=== PATIENT | female | born 1940 | race Caucasian/White ===

== ENCOUNTER 2019-07-18 16:04 | Inpatient (IN) | payer MEDICARE ==
[~2019-07-18] VITALS: Ht 160 cm; Wt 58.1 kg
[2019-07-18 17:02] VITALS: BP 139/70
[2019-07-18] MEDS ORDERED: POLY17PO5 PO (17:54)
[2019-07-18] MEDS ORDERED: AMLO5TAB10 PO (17:54)
[2019-07-18] MEDS ORDERED: APIX5TAB3 PO (17:54)
[2019-07-18] MEDS ORDERED: FAMO-63 PO (17:54)
[2019-07-18] MEDS ORDERED: ESTR42.58 VG (17:54)
[2019-07-18] MEDS ORDERED: PROP40TA PO (17:54)
--- NOTE | 2019-07-18 18:00 | NUR ---
NURSING NOTE ADMIT PT WAS DIRECT ADMIT TO ROOM [address]ERI OFFICE. PT DX WITH RIGHT FOREARM LYMPHANGITIS. PHOTO OBTAINED. PT SETTLED IN ROOM. MEDICATIONS OBTAINED AND ENTERED IN CHART. DR NERI NOTIFIED OF ADMISSION. NO COMPLICATIONS. ILIR [place].
[2019-07-18] MEDS ORDERED: ACETAMINOPHEN 500 MG TABLET PO PRN (18:15)
[2019-07-18] MEDS ORDERED: ZOLPIDEM 5 MG TABLET. PO PRN (18:15)
[2019-07-18 18:59] LABS: BASO % 1 % (0-3); EOS # 0.1 x10^3/uL (0.0-0.7); EOS % 2 % (0-3); HEMATOCRIT 38.1 % (36.0-47.0); HEMOGLOBIN 12.9 g/dL (12.0-15.5); LYMPH # 1.2 x10^3/uL (1.0-4.8); LYMPH % 20 % (24-48); MEAN CORPUSCULAR HEMOGLOBIN 32 pg (25-35); MEAN CORPUSCULAR HGB CONC 34 g/dL (31-37); MEAN CORPUSCULAR VOLUME 95 fL (79-100); MONO # 0.4 x10^3/uL (0.0-1.1); MONO % 7 % (0-9); NEUT % 70 % (31-73); PLATELET COUNT 259 x10^3/uL (140-400); RED BLOOD COUNT 4.03 x10^6/uL (3.50-5.40); WHITE BLOOD COUNT 5.7 x10^3/uL (4.0-11.0)
[2019-07-18 19:13] LABS: ALBUMIN 3.5 g/dL (3.4-5.0); ALBUMIN/GLOBULIN RATIO 0.9 (1.0-1.7); CALCIUM 8.9 mg/dL (8.5-10.1); CREATININE 1.3 mg/dL (0.6-1.0); GFR 39.6; POTASSIUM 4.2 mmol/L (3.5-5.1); TOTAL BILIRUBIN 0.5 mg/dL (0.2-1.0); TOTAL PROTEIN 7.4 g/dL (6.4-8.2)
[2019-07-18 20:06] LABS: SEDIMENTATION RATE 58 (0-25)
[2019-07-18 20:34] VITALS: BP 121/57
[2019-07-18] MEDS: LACTOBACILLUS RHAMNOSUS GG 1 CAPSULE. PO SCH (21:15)
[2019-07-18] MEDS: PROPRANOLOL 20 MG TABLET. PO SCH (21:16)
[2019-07-18] MEDS: CLINDAMYCIN 600MG PREMIX 50 ML IV SCH (21:16)
[2019-07-18] MEDS: APIXABAN 5 MG TABLET. PO SCH (21:16)
[2019-07-18 23:52] VITALS: BP 115/63
[2019-07-19] MEDS: CLINDAMYCIN 600MG PREMIX 50 ML IV SCH ×3 (05:39→21:48)
[2019-07-19 05:50] VITALS: BP 131/74
[2019-07-19] MEDS: POLYETHYLENE GLYCOL 3350 17 GM PACKET. PO SCH (08:19)
[2019-07-19] MEDS: APIXABAN 5 MG TABLET. PO SCH ×2 (08:20→20:38)
[2019-07-19] MEDS: LACTOBACILLUS RHAMNOSUS GG 1 CAPSULE. PO SCH ×2 (08:20→20:38)
[2019-07-19] MEDS: FAMOTIDINE 20 MG TABLET PO SCH (08:20)
[2019-07-19] MEDS: amLODIPine BESYLATE 5 MG TABLET PO SCH (08:21)
[2019-07-19] MEDS: PROPRANOLOL 20 MG TABLET. PO SCH ×2 (08:21→20:38)
--- NOTE | 2019-07-19 08:42 | RAD ---
PROCEDURE: WRIST 2V RIGHT STUDY DATE: 07/18/2019 CLINICAL INDICATION / HISTORY: Cat bite to the wrist right. TECHNIQUE: PA and lateral views of the right wrist were obtained COMPARISON: None FINDINGS: A dressing over the dorsum of the right wrist is present. There is no fracture or retained radiopaque foreign body besides artifact from the dressing material overlying the dorsomedial right wrist. Alignment shows mild ulnar negative variance. Minimal degenerative changes of the first CMC joint. Otherwise negative right wrist. IMPRESSION: Dressed wound on the dorsal aspect of the right wrist with no acute abnormality otherwise noted. Electronically signed by: Angel Del Rio MD (07/19/2019 8:39 AM) [facility]
[2019-07-19 10:42] VITALS: BP 110/58
--- NOTE | 2019-07-19 12:05 | PN ---
DATE: SUBJECTIVE: A 79-year-old female came in with cellulitis, lymphangitis to her right arm as a result of a cat bite to the right wrist that was left untreated. Apparently, went to the ER and they had problems with the situation with just giving her 1 antibiotic, which does seem to work as the progression of the infection spread up the arm. The patient has been placed on protocols as noted for cat bites with lymphangitis and the patient is making fairly good progress with a combination of Rocephin and clindamycin. The patient otherwise says she is feeling a little bit better, although she is still having quite a bit of pain in that right arm. OBJECTIVE: VITAL SIGNS: Blood pressure is 130/74, respirations 18, pulse 70, afebrile. GENERAL: The patient is alert and oriented x 3. EXTREMITIES: The right hand is less swollen, less redness to the right forearm, although still present, it is decreased in its aperture. The patient is able move her fingers a little bit better. They were stiff for yesterday. NEUROLOGIC: The patient neurologically is alert and oriented x 3. LUNGS: Diminished, but clear. CARDIOVASCULAR: Stable. IMPRESSION: Cellulitis, lymphangitis to the right arm secondary to cat bite. PLAN: The patient will continue on IV antibiotic therapy. Sed rate was elevated at 58, creatinine elevated at 1.3, blood sugar 114. Otherwise, the patient is making good progress overall and continued to be monitored on IV antibiotic therapy and hopefully ready for discharge tomorrow possibly either on IV or p.o. meds depending on how well she makes progress today. BEATRIZ NERI MD DR: PAUL/uri JOB#: [id number] / [id number]
[2019-07-19 14:57] VITALS: BP 101/55
[2019-07-19 19:22] VITALS: BP 125/67
[2019-07-19 22:09] VITALS: BP 105/65
[2019-07-20] MEDS: CLINDAMYCIN 600MG PREMIX 50 ML IV SCH (05:31)
[2019-07-20 05:42] VITALS: BP 102/64
[2019-07-20] MEDS: APIXABAN 5 MG TABLET. PO SCH (08:24)
[2019-07-20] MEDS: POLYETHYLENE GLYCOL 3350 17 GM PACKET. PO SCH (08:24)
[2019-07-20] MEDS: LACTOBACILLUS RHAMNOSUS GG 1 CAPSULE. PO SCH (08:24)
[2019-07-20] MEDS: FAMOTIDINE 20 MG TABLET PO SCH (08:24)
[2019-07-20] MEDS: PROPRANOLOL 20 MG TABLET. PO SCH (08:27)
[2019-07-20] MEDS: amLODIPine BESYLATE 5 MG TABLET PO SCH (08:29)
[2019-07-20] MEDS ORDERED: ESTRADIOL 0.01% VAGINAL CREAM 42.5GM TUBE. VG SCH (09:00)
[2019-07-20 10:08] VITALS: BP 113/59
[2019-07-20] MEDS ORDERED: CEFD300C PO (10:42)
--- NOTE | 2019-07-20 12:30 | NUR ---
NSG NOTE; DISCHARGE VERBAL AND WRITTEN DISCHARGE INSTRUCTIONS GIVEN TO PT WITH VERBAL UNDERSTANDING RX CALLED TO [facility] DISCHARGED TO HOME AT 1225 VIA AMB ACCOMP BY
--- NOTE | 2019-07-20 14:56 | DS ---
DATE OF DISCHARGE: HOSPITAL COURSE: A 79-year-old female, had a cat bite to her right wrist. She had been on oral antibiotics as an outpatient and that failed. The swelling and redness began to go up the arm and there were lymph nodes as noted just in front of the elbow. So, she had lymphangitis. The patient failed outpatient therapy, was brought in and placed on IV antibiotic therapy per protocol for lymphangitis. She made excellent progress. We just switched her over to ____ and she will be discharged home. Her sed rate was 58, otherwise her CBC was normal. Her chemistries outside of a creatinine of 1.3 and a blood sugar of 114. All her labs looked really pretty good and the patient's blood cultures were negative. IMPRESSION: Lymphangitis to the right forearm and right wrist secondary to a cat bite, failure of outpatient therapy; chronic kidney disease stage 3. The patient will be discharged home on oral antibiotic therapy recommended by our pharmacy and will continue to be monitored for followup. Regular diet, decreased activity. BEATRIZ NERI MD DR: PAUL/uri JOB#: [id number] / [id number]
== END 2019-07-20 12:25 | disposition home or self-care (01) | DRG 603 ==
LOC: 1 SOUTH 16:04
PROVIDERS: ADMIT Family Medicine; ATTEND Family Medicine
DX: L03.113 Cellulitis of right upper limb (principal); I89.1 Lymphangitis; N18.3 Chronic kidney disease, stage 3 (moderate); S41.151A Open bite of right upper arm, initial encounter; W55.01XA Bitten by cat, initial encounter; Y93.89 Activity, other specified; Y92.89 Other specified places as the place of occurrence of the external cause; Y99.8 Other external cause status
CPT/HCPCS: 36415; 73100; 80053; 85025; 85651; 87040; J0696; J3490